=== PATIENT | male | born 1980 | race African-American/Black ===

== ENCOUNTER 2016-10-20 20:05 | Emergency (ER) | payer MEDICAID, OTHER ==
[2016-10-20 20:06] VITALS: BP 147/91; PULSE 76; RESP 16; TEMP 98.4; O2SAT 100
[2016-10-20] MEDS ORDERED: PERM5CRE11 TOPICAL (20:22)
--- NOTE | 2016-10-20 20:27 | PD ---
HPI Chief Complaint: Skin Problem Time Seen by Provider: 20:23 Travel History International Travel<30 days: No Contact w/Intl Traveler<30days: No Traveled to known affect area: No History of Present Illness HPI 36-year-old black male presents emergency department requesting treatment for possible scabies exposure. He states that his significant other was diagnosed with scabies earlier. He has had a area of itching to both forearms now for the past day. He does not report any obvious rash. He has not been sick otherwise. He does report that he does sleep with his partner. PFS Past Medical History Medical History: Denies Significant Hx Tetanus Vaccination: < 5 Years Past Surgical History Surgical History: No Previous Surgery Social History Alcohol Use: No Tobacco Use: No Substance Use: No Allergies-Medications (Allergen,Severity, Reaction): Coded Allergies: No Known Allergies (Unverified , 10/20/16) Review of Systems Except as stated in HPI: all other systems reviewed are Neg Skin: Positive Rash, Positive Itching, No Lumps, No Hives, No Lesions Physical Exam Narrative GENERAL: This is a well-nourished, well-developed patient, in no apparent distress. SKIN: No rashes, ecchymoses or lesions. Warm and dry. I see no distinct rash. There is no lesions between the fingers. HEAD: Atraumatic. Normocephalic. EYES: PERRL, EOMI, no discharge or injection. No scleral icterus. EARS: Clear NOSE: Nasal turbinates appear normal. THROAT: Mucosa pink and moist. Airway patent. NECK: Trachea midline. supple, moves head freely. LUNGS: Clear to auscultation. CV: Regular in rhythm. ABDOMEN: Soft nontender. EXT: No clubbing cyanosis or edema. Data Data Last Documented VS Vital Signs Date Time Temp Pulse Resp B/P Pulse Ox O2 Delivery O2 Flow Rate FiO2 10/20/16 20:06 98.4 76 16 147/91 100 Room Air MDM Medical Decision Making Medical Screen Exam Complete: Yes Emergency Medical Condition: Yes Medical Record Reviewed: Yes Differential Diagnosis MDM: High Differential diagnoses: Abscess, folliculitis, cellulitis, lymphangitis, abrasion, contact dermatitis, scabies Narrative Course I explained to the patient that I do not see an obvious scabies rash but I will go ahead and treat him for the potential exposure. He can take Benadryl for itching. Diagnosis Primary Impression: Dermatitis Patient Instructions: General Instructions Additional Instructions: Rest. Elimite. 50 g of Benadryl 3 times a day for itching. Aveeno bath. Wash all bedding and clothing in hot water. Follow-up with a primary care doctor in 1 week. Med/Other Pt SpecificInfo: Prescription(s) given Scripts Permethrin Topical (Elimite Topical)5% Cream1 Applic TOPICAL ONCE #1 TUBE Prov:Glen Glover MD 10/20/16 Disposition: 01 DISCHARGE HOME Condition: Stable Man [place] October 20, 2016 20:27
== END 2016-10-20 20:46 | disposition home or self-care (01) ==
LOC: NEPK 20:05
DX: L30.9 Dermatitis, unspecified (principal)
CPT/HCPCS: 99283